=== PATIENT | male | born 1970 | race African-American/Black ===

== ENCOUNTER 2017-03-21 15:52 | Emergency (ER) | payer OTHER ==
[~2017-03-21] VITALS: Ht 180.3 cm; Wt 65.8 kg
[~2017-03-21 15:52] MED LIST: KEFLEX500 MG PO
[2017-03-21 18:39] LABS: URINE BLOOD TRACE (Negative); URINE COLOR YELLOW; URINE GLUCOSE-RANDOM* NEGATIVE (Negative); URINE KETONES 1+ (Negative); URINE NITRITE NEGATIVE (Negative); URINE PROTEIN (DIPSTICK) TRACE (Negative); URINE SPECIFIC GRAVITY >= 1.030 (1.003-1.035); URINE UROBILINOGEN 0.2 E.U./dl (0.2-1.0)
[2017-03-21 18:41] LABS: ICTOTEST (BILI CONFIRMATORY) Negative (Negative); URINE BILIRUBIN NEGATIVE (Negative)
[2017-03-21 18:41] LABS: ABSOLUTE NEUTROPHILS 3.4 thou/uL (1.4-8.2); BASOPHILS 0.9 % (0.0-2.0); EOSINOPHILS 0.2 % (0.0-3.0); HEMATOCRIT 40.4 % (42.0-52.0); HEMOGLOBIN 13.1 gm/dL (14.0-18.0); LYMPHOCYTES 27.4 % (24.0-44.0); MCH 29.6 pg (26.0-34.0); MCHC 32.5 g/dL (28.0-37.0); MCV 91.2 fL (80.0-100.0); MONOCYTES 11.5 % (1.0-8.0); PLATELET COUNT 220 thou/uL (150-400); RBC 4.43 mil/uL (4.50-6.00); RDW 14.3 % (10.5-14.5); WBC 5.6 thou/uL (4.0-11.0)
[2017-03-21 18:44] LABS: AMP/METHAMP Negative (Negative); BARBITURATES Negative (Negative); BENZODIAZEPINES Negative (Negative); COCAINE Negative (Negative); METHADONE Negative (Negative); OPIATES Negative (Negative); PCP POSITIVE (Negative); THC Negative (Negative)
[2017-03-21 18:44] LABS: MANUAL DIFF NO
[2017-03-21 18:49] LABS: ANION GAP 10 mmol/L (7-16); BUN 16 mg/dL (7-18); CALCIUM 9.2 mg/dL (8.5-10.1); CHLORIDE 105 mmol/L (98-107); CO2 27 mmol/L (21-32); CREATININE 0.9 mg/dL (0.7-1.3); GLUCOSE 71 mg/dL (74-106); POTASSIUM 4.4 mmol/L (3.5-5.1); SODIUM 142 mmol/L (136-145)
[2017-03-21 18:55] LABS: ALBUMIN 3.8 g/dL (3.4-5.0); ALKALINE PHOSPHATASE 80 U/L (46-116); SALICYLATE 4.3 mg/dL (2.8-20.0); SGOT 75 U/L (15-37); SGPT 56 U/L (30-65); TOTAL BILIRUBIN 0.6 mg/dL (<0.1-1.0); TOTAL PROTEIN 7.6 g/dL (6.4-8.2)
[2017-03-21 18:56] LABS: ACETAMINOPHEN < 2 ug/mL (10-30)
[2017-03-21 20:54] VITALS: BP 120/86
== END 2017-03-21 20:55 | disposition home or self-care (01) ==
LOC: ER 15:52
PROVIDERS: Physician Assistant
DX: F16.10 Hallucinogen abuse, uncomplicated (principal); Z86.59 Personal history of other mental and behavioral disorders; F17.210 Nicotine dependence, cigarettes, uncomplicated; F10.99 Alcohol use, unspecified with unspecified alcohol-induced disorder; Z88.0 Allergy status to penicillin

== ENCOUNTER 2017-05-19 18:01 | Emergency (ER) | payer OTHER ==
[~2017-05-19] VITALS: Ht 180.3 cm; Wt 67.1 kg
[2017-05-19 18:40] LABS: AMP/METHAMP Negative (Negative); BARBITURATES Negative (Negative); BENZODIAZEPINES Negative (Negative); COCAINE Negative (Negative); METHADONE Negative (Negative); OPIATES Negative (Negative); PCP POSITIVE (Negative); THC Negative (Negative)
[2017-05-19] MEDS ORDERED: MOBIC7.5 MG PO (19:45)
[2017-05-19 20:06] VITALS: BP 147/99
== END 2017-05-19 20:00 | disposition home or self-care (01) ==
LOC: ER 18:01
PROVIDERS: Physician Assistant
DX: G89.29 Other chronic pain (principal); F17.210 Nicotine dependence, cigarettes, uncomplicated; F10.99 Alcohol use, unspecified with unspecified alcohol-induced disorder; F15.10 Other stimulant abuse, uncomplicated; Z88.0 Allergy status to penicillin

== ENCOUNTER 2017-06-06 07:48 | Emergency (ER) | payer OTHER ==
[~2017-06-06] VITALS: Ht 180.3 cm; Wt 78.0 kg
[~2017-06-06 07:48] MED LIST changes: +MOBIC7.5 MG PO
[2017-06-06 09:23] VITALS: BP 100/47
== END 2017-06-06 09:24 | disposition home or self-care (01) ==
LOC: ER 07:48
DX: L29.9 Pruritus, unspecified (principal); F17.210 Nicotine dependence, cigarettes, uncomplicated; F10.99 Alcohol use, unspecified with unspecified alcohol-induced disorder; Z88.0 Allergy status to penicillin

== ENCOUNTER 2017-07-11 06:30 | Emergency (ER) | payer OTHER ==
[~2017-07-11] VITALS: Ht 180.3 cm; Wt 72.6 kg
[2017-07-11 06:34] VITALS: BP 138/96
== END 2017-07-11 07:28 | disposition home or self-care (01) ==
LOC: ER 06:30
DX: G89.29 Other chronic pain (principal); M54.6 Pain in thoracic spine; M25.572 Pain in left ankle and joints of left foot; M25.571 Pain in right ankle and joints of right foot; R07.9 Chest pain, unspecified; F17.210 Nicotine dependence, cigarettes, uncomplicated; Z88.0 Allergy status to penicillin

== ENCOUNTER 2017-07-26 05:23 | Emergency (ER) | payer OTHER ==
[~2017-07-26] VITALS: Ht 180.3 cm; Wt 74.8 kg
[2017-07-26] MEDS ORDERED: PERCOCET PO (05:32)
[2017-07-26] MEDS ORDERED: AMBIEN 5 MG TABL5 M1 PO (05:32)
[2017-07-26] MEDS ORDERED: AMBIEN 10 MG TA10 MG PO (05:41)
[2017-07-26] MEDS ORDERED: NORFLEX100 MG PO (05:41)
[2017-07-26 05:58] VITALS: BP 137/82
== END 2017-07-26 15:17 | disposition home or self-care (01) ==
LOC: ER 05:23
DX: M54.9 Dorsalgia, unspecified (principal); G89.29 Other chronic pain; G47.00 Insomnia, unspecified; F17.210 Nicotine dependence, cigarettes, uncomplicated; Z88.0 Allergy status to penicillin; Z98.890 Other specified postprocedural states